=== PATIENT | female | born 1955 | race Caucasian/White ===

== ENCOUNTER 2018-02-22 12:37 | Emergency (ER) | payer BC, SELFPAY ==
[2018-02-22 12:47] VITALS: BP 136/80; PULSE 97; RESP 14; TEMP 36.7; O2SAT 98; BMI 26.5
--- NOTE | 2018-02-22 13:40 | RAD_ITS ---
STUDY: X-RAY - ABDOMEN/PELVIS REASON FOR EXAM: Female, 63 years old. Gastrografin injected TECHNIQUE: Single AP view of the abdomen / pelvis. COMPARISON: None. FINDINGS: Interstitial markings are diffusely prominent within the lungs. There is a visualized left side percutaneous endogastric tube with contrast in the stomach. Contrast was refluxed into the small bowel. The insertion site there is a small focus of density which is indeterminate. There is an unremarkable bowel gas pattern. There is no demonstrated free abdominal air. The liver spleen and kidneys are mostly obscured on this study. Normal soft tissue structures. There are diffuse degenerative changes of the visualized lumbar spine. RAD/Abdomen Single View IMPRESSION: Contrast is present in the stomach. However there is a focal rounded radiopaque density at the insertion site which is indeterminate. Cannot exclude leak around the tubing at the tubing insertion site. Recommend correlation with the material overlying or involving the tubing. Electronically Signed: Marilia Mariee MD at 14:03 EDT Tel , Service support ,
--- NOTE | 2018-02-22 13:50 | ED.DCSUM_ITS ---
- ER Visit Summary Date of Service: 02/22/18 Chief Complaint: PEG tube replacement History of Present Illness: The patient is a 63 F who was sent for PEG tube replacement. senior living since the replacement tubing with her. She is currently being treated for pneumonia that has Pseudomonas growing from the sputum culture. She is on Augmentin which is active against her particular strain. Patient is nonverbal following an intracranial hemorrhage and is trached. Physical Examination: Afebrile vital signs are stable The PEG site is clean dry and intact. The old PEG is cracked and balloon is deflated and is basically only been held 1/2 cm anterior skin with tape. Test Results: KUB shows contrast in the abdomen without significant extravasation. The abnormal finding at the radiologist sees appears to be on the skin. Emergency Department Course and Treatment: PEG tube was easily replaced. Gastrografin imaging was performed. Tube was secured and dressed in the usual manner. Patient will be discharged to follow-up with her doctor as scheduled. Impression:. PEG tube replacement This note was generated with [employer] dictation software. It may contain incorrect words, spelling, and punctuation that were not noted in review of the chart prior to signing ED Disposition - Plan for ED Patient: Disposition: Home or Assisted Living Chief Complaint: Shortness of Breath Instructions: ED G Tube Replacement Referrals: Bin Alvarado MD [STAFF PHYSICIAN] - Keep Joey appointment
--- NOTE | 2018-02-22 13:53 | PCA ---
CALLED [facility] FOR TRANSPORT BACK TO [facility]
[2018-02-22 14:29] VITALS: O2SAT 96
[2018-02-22 14:30] VITALS: BP 144/86; PULSE 70; RESP 22; O2SAT 96
== END 2018-02-22 14:31 | disposition home or self-care (01) ==
PROVIDERS: Emergency Provider Emergency Medicine; Family Provider Family Medicine; PCP Family Medicine
DX: Z43.1 Encounter for attention to gastrostomy (principal); J15.1 Pneumonia due to Pseudomonas
CPT/HCPCS: 43760; 74018; 99283